=== PATIENT | female | born 1995 | race Hispanic/Latino ===

== ENCOUNTER 2019-12-28 06:17 | Emergency (ER) | payer MEDICAID, SELFPAY ==
[2019-12-28 06:54] LABS: #Basophils 0.1 thou/uL (0.0-0.2); #Eosinphils 0.1 thou/uL (0.0-0.7); #Lymphocytes 1.7 thou/uL (1.20-3.40); #Monocytes 0.6 thou/uL (0.11-0.59); #Neutrophils 5.6 thou/uL (1.40-6.50); %Basophils 1.4 % (0.0-1.0); %Eosinophils 1.1 % (0.0-10.0); %Lymphocytes 20.7 % (21.0-51.0); %Monocytes 7.1 % (0.0-10.0); %Neutrophils 69.6 % (42.0-75.0); Hemoglobin 12.8 g/dL (12.0-16.0); Mean Corpuscular Hemoglobin 31.6 pg (27.0-31.0); Mean Corpuscular Volume 95.9 fL (78.0-98.0); Mean Platelet Volume 8.6 fL (7.4-10.4); Platelet Count 202 thou/uL (130-400); RBC Distribution Width 10.7 % (11.5-14.5); Red Blood Cell (RBC) Count 4.06 mill/uL (4.20-5.40)
--- NOTE | 2019-12-28 08:31 | ULT ---
PELVIC ULTRASOUND INCLUDING TRANSABDOMINAL AND TRANSVAGINAL AND VASCULAR DUPLEX WITH COLOR AND SPECTR AL DOPPLER IMAGING: HISTORY: patient with bleeding and spotting. FINDINGS: There is an early viable intrauterine fetus. Arthur-rump length 1.5 cm. gestational age 7 week s 6 days. Gestational sac size 2.4 cm=7 weeks 3 days. heart rate 162 b.p.m. There is some minimal subchorionic hemorrhage. Right ovary is not seen. The left ovary is within no rmal limits containing a 1.1 x 1.6 x 1.2 cm small functional cyst. Trace cul-de-sac fluid. IMPRESSION: Small subchorionic hemorrhage. Early viable intrauterine fetus at 7 weeks 5 days with an Estimated d ate of confinement of 08/10/2020. Small functional left ovarian cyst. Nonvisualized right ovary. POS: TPC
[2019-12-28 08:48] LABS: Bilirubin Negative (Negative); Blood, Urine 2+ (Negative); Clarity Clear (Clear); Glucose, Urine (Dipstick) Normal (Negative); Leukocyte Negative Leu/uL (Negative); Nitrite Negative (Negative); Protein, Urine (Dipstick) Negative (Neg-Trace); RBC/HPF 0-3 HPF (0-3); Squamous Epithelial 0-3 HPF (0-3); Urobilinogen Normal mg/dL (Less than 2); WBC/HPF 0-3 HPF (0-3)
[2019-12-28 08:52] LABS: Bacteria/HPF 1+ HPF (None Seen)
== END 2019-12-28 08:58 | disposition home or self-care (01) ==
LOC: ERS 06:17
DX: O46.91 Antepartum hemorrhage, unspecified, first trimester (principal); Z3A.01 Less than 8 weeks gestation of pregnancy
CPT/HCPCS: 36415; 76856; 81003; 81015; 84702; 85025; 86900; 86901

== ENCOUNTER 2020-08-11 09:12 | Outpatient (CLI) | payer MEDICAID, OTHER ==
[2020-08-11 17:59] LABS: SARS-CoV-2 MS2 Positive; SARS-CoV-2 N Gene Negative; SARS-CoV-2 S Gene Negative; SARS-CoV-2 by NAA Not Detected (NotDetected); SARS-CoV-2 orf1ab Negative
== END 2020-08-11 09:13 | disposition home or self-care (01) ==
LOC: LABSCS 09:12
PROVIDERS: ATTEND Family Medicine
DX: Z20.828 Contact with and (suspected) exposure to other viral communicable diseases (principal)
CPT/HCPCS: 87635; U0003

== ENCOUNTER 2020-08-14 18:00 | Inpatient (IN) | payer MEDICAID, OTHER ==
[~2020-08-14 18:00] MED LIST: Bupivacaine/Epinephrine 0.25% 30 ML VIAL ONE
[2020-08-14 22:22] VITALS: BMI 25.8
[2020-08-14] MEDS ORDERED: Butorphanol Tartrate 1 MG/ML VIAL SLOW IVP PRN (22:33)
[2020-08-14] MEDS ORDERED: hydrALAZINE 20 MG/ML VIAL SLOW IVP PRN (22:33)
[2020-08-14] MEDS ORDERED: Misoprostol 200 MCG TAB PR PRN (22:33)
[2020-08-14] MEDS ORDERED: Carboprost 250 MCG/ML AMP IM PRN (22:33)
[2020-08-14] MEDS ORDERED: Lidocaine 1% (PF) 30 ML VIAL SC PRN (22:33)
[2020-08-14] MEDS ORDERED: Ibuprofen 800 MG TAB PO PRN (22:33)
[2020-08-14] MEDS ORDERED: Methylergonovine 0.2 MG/ML VIAL IM PRN (22:33)
[2020-08-14] MEDS ORDERED: Ondansetron PF 4 MG/2 ML Vial IVP PRN (22:33)
[2020-08-14] MEDS ORDERED: Promethazine HCl 25 MG/ML VIAL IM PRN (22:33)
[2020-08-14] MEDS ORDERED: NS / Oxytocin 40 units/1000ml 1,000 ML IV PRN (22:33)
[2020-08-14] MEDS ORDERED: Diphenoxylate HCl/Atropine Tablet PO PRN ×2 (22:33)
[2020-08-14] MEDS: Lactated Ringer's 1,000 ML IV SCH (22:48)
[2020-08-14 23:08] LABS: Mean Corpuscular HGB CONC 34.8 g/dL (32.0-36.0); Mean Corpuscular Hemoglobin 34.1 pg (27.0-31.0); Mean Corpuscular Volume 98.1 fL (78.0-98.0); Mean Platelet Volume 9.3 fL (7.4-10.4); Platelet Count 173 thou/uL (130-400); RBC Distribution Width 10.9 % (11.5-14.5); Red Blood Cell (RBC) Count 3.81 mill/uL (4.20-5.40); White Blood Cell (WBC) Count 9.9 thou/uL (4.8-10.8)
--- NOTE | 2020-08-14 23:42 | PDOC.FPROB ---
FMR OB H&P: HPI - History of Present Illness Chief Complaint: post dates IOL Indentification: 24 yo at 40.4 History of Present Illness: Patient presents today for IOL. She denies feeling contractions, LOF, vaginal bleeding, headache, blurry vision, chest pain, SOB. She has A1GDM and checks her blood sugar regularly at home. She reports that her blood sugar was 100 before coming to the hospital today. 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, Pap NILM 07/2019, menarche at 14 - Surgical History Sx History: None - Social History Social History: Denies tob/alcohol/drug use - Family History Family History: Denies family history FMR OB H&P: Medications - Current Home Medications: Medication Instructions Recorded Confirmed Type No Known 08/14/20 08/14/20 History Allergies/Adverse Reactions: Allergies Allergy/AdvReac Type Severity Reaction Status Date / Time No Known Allergies Allergy Verified 08/14/20 22:00 FMR OB H&P: ROS - Review of Systems General: denies: fever/chills ENT: denies: nasal congestion, rhinorrhea Cardiovascular: denies: chest pain, edema Respiratory: denies: cough, congestion, shortness of breath Gastrointestinal: denies: abdominal pain Genitourinary (Female): denies: vaginal bleeding, contractions Neurologic: denies: numbness Integumentary: denies: itching, rash Psychological: denies: depression, anxiety FMR OB H&P: Vital Signs - Maternal Vital signs: Vital Signs - First Documented Temp Pulse Resp BP 99.2 F 67 18 127/72 08/14/20 21:58 08/14/20 21:58 08/14/20 21:58 08/14/20 21:58 - Heart Tones Baseline: 150 Variability: moderate Acceleration: present Deceleration: absent Category: category 1 [place] contractions every: 4-5 min FMR OB H&P: Physical Exam - Physical Exam General: NAD, awake, alert and oriented HEENT: normocephalic and atraumatic, grossly normal vision, grossly normal hearing Neck: supple, FROM Heart: RRR, normal S1/S2 General: CTAB, no respiratory distress Abdomen: gravid, non-tender Musculoskeletal: FROM in all four extremities Neurological: cranial nerves II through XII intact, sensation to pain,touch and proprioception grossly normal Skin: no rash, no jaundice Lymphatic: no unusual bruising or bleeding, no purpura, no petechia Psychiatric: intact recent and remote memory, good judgement and insight, normal mood and affect - Pelvic Exam Vulva: normal hair distribution, appropriate hedy stage SVE: Adam score: 7 Membranes: Intact FMR OB H&P: Results - Labs Lab results: Laboratory Results - last 24 hr 08/14/20 08/14/20 22:54 22:54 WBC 9.9 RBC 3.81 L Hgb 13.0 Hct 37.4 MCV 98.1 H MCH 34.1 H MCHC 34.8 RDW 10.9 L Plt Count 173 MPV 9.3 Blood Type O POSITIVE Antibody Screen NEGATIVE FMR OB H&P: A/P Discussion: Date/Time: 08/14/20 2337 24 yo at 40.4 wga by 7.5 wk morales presents for post-dates IOL IOL - SVE: @ 2326 - Cytotek placed ~2350 - Adam of 7, will likely start pit on next check - FHT: baseline 150, moderate variability, accels, no decels - [place]: contraction q 4-5 min - Epidural desired at later time A1GDM - reports home reading of 100 before coming to the hospital - goal 70-110 - Q4Hr accuchecks PCP: Jose G JOSE This H&P was discussed with Dr. Barboza and Dr. Talamantes who agree with the above documentation and plan. Addendum - Attending - Attending Attestation Date/Time: 08/15/20 6845 I personally evaluated the patient and discussed the management with Dr. Houston. I agree with the History, Examination, Assessment and Plan documented above with any addition or exceptions noted below. IOL for post dates. GBS neg. Adam score 7 so will give single dose of cytotec. FHT reassuring. Expectant management otherwise.
[2020-08-14] MEDS ORDERED: Misoprostol 100 MCG TAB VAG SCH (23:45)
[2020-08-14 23:49] LABS: HBSAg Index 0.17 S/CO (0-0.99); Hep B Surf Ag Non-Reactive S/CO (NonReactive); Syphilis Antibody Nonreactive (Nonreactive); Syphilis Antibody Index 0.02 S/CO (<1.00 Non-Reactive)
--- NOTE | 2020-08-15 04:14 | PDOC.OBLPN ---
FMR OB Labor PN: Subj - Interval History Chief Complaint: IOL Indentification: 24 yo at 40.5 wga Interval History: Doing well, starting to feel her contractions, pain 11/30 FMR OB Labor PN: Obj - Maternal Vital signs: BP: 115/68 HR: 60 Tmax: 98.7 FMR OB Labor PN: Exam - Physical Exam General: NAD HEENT: grossly normal vision, grossly normal hearing General: no respiratory distress Abdomen: gravid Neurological: cranial nerves II through XII intact, sensation to pain,touch and proprioception grossly normal - Pelvic Exam Vulva: normal hair distribution, appropriate hedy stage SVE: Adam score: 8 Membranes: intact FMR OB Labor PN: Data - Labs Lab results: Laboratory Results - last 24 hr 08/14/20 08/14/20 08/14/20 22:54 22:54 22:54 WBC RBC Hgb Hct MCV MCH MCHC RDW Plt Count MPV POC Glucose Syphilis IgG/IgM Ab Nonreactive Hep Bs Antigen Non-Reactive Blood Type O POSITIVE Antibody Screen NEGATIVE 08/14/20 08/15/20 08/15/20 22:54 00:21 03:56 WBC 9.9 RBC 3.81 L Hgb 13.0 Hct 37.4 MCV 98.1 H MCH 34.1 H MCHC 34.8 RDW 10.9 L Plt Count 173 MPV 9.3 POC Glucose 80 79 Syphilis IgG/IgM Ab Hep Bs Antigen Blood Type Antibody Screen FMR OB Labor PN: A/P - Problem List (1) Intrauterine Current Visit: Yes Status: Acute Code(s): Z34.90 - ENCNTR FOR SUPRVSN OF NORMAL , UNSP, UNSP TRIMESTER (2) Gestational diabetes Current Visit: Yes Status: Acute Code(s): O24.419 - GESTATIONAL DIABETES MELLITUS IN , UNSP CONTROL Discussion: 24 yo at 40.4 wga by 7.5 wk morales presents for post-dates IOL IOL - SVE: @ 0400 - Cytotek placed ~2350 - Adam of 8, Pit is ordered, not yet started due to frequent contractions - FHT: baseline 140, moderate variability, accels, no decels - [place]: contraction q 1-2 min - Epidural desired at later time A1GDM - Glucose: 80, 79 - goal 70-110 - Q4Hr ilia PCP: Jose G JOSE
[2020-08-15] MEDS ORDERED: NS w/ Oxytocin 10 units 500 ML IV SCH (04:15)
[2020-08-15] MEDS: Lactated Ringer's 1,000 ML IV SCH ×3 (06:36→15:16)
[2020-08-15] MEDS ORDERED: Fentanyl 4 mcg/Bup 0.1% Cadd 100 ML ONE ×3 (06:57→22:22)
[2020-08-15] MEDS: Fentanyl 4 mcg/Bupivacaine 0.1% Cassette 100 ML EPIDURAL SCH ×3 (07:43→22:26)
[2020-08-15] MEDS ORDERED: Lactated Ringer's 500 ML IV PRN (07:46)
[2020-08-15] MEDS ORDERED: Ondansetron PF 4 MG/2 ML Vial IVP PRN (07:46)
[2020-08-15] MEDS ORDERED: Promethazine HCl 25 MG/ML VIAL IM PRN (07:46)
[2020-08-15] MEDS ORDERED: Naloxone HCl 0.4 mg/ml Vial IVP PRN ×2 (07:46)
[2020-08-15] MEDS ORDERED: Acetaminophen 325 MG TAB PO PRN (07:46)
[2020-08-15] MEDS ORDERED: diphenhydrAMINE 50 MG/ML VIAL IVP PRN (07:46)
[2020-08-15] MEDS ORDERED: Communication Order-Pharmacy FS SCH (08:00)
--- NOTE | 2020-08-15 08:15 | PDOC.LDPN ---
Labor & Delivery Progress Note - Subjective Subjective: comfortable - Objective Vital signs reviewed and normal: yes General: NAD Uterine fundus: non tender SVE: /-1 FHT: category 1, variability present [place] contractions every: 1-2 mins Plan: continue plan of care -: 24 yo at 40.5 wga by 7.5 wk [place] presents for post-dates IOL IOL - SVE: /0 @ 0400, /-1 @ 0800 - Cytotek placed ~2350, not repeated 2/2 frequent ctx - Adam of 8, Pit is ordered, not yet started due to frequent contractions - FHT: baseline 135, moderate variability, accels, no decels - [place]: contraction q 1-2 min - Epidural completed @ 0730 A1GDM - Glucose: 80, 79 - goal 70-110 - Q4Hr accuchecks PCP: Jose G JOSE Addendum - Attending - Attending Attestation Date/Time: 08/15/20 0822 I personally evaluated the patient and discussed the management with Dr. Crockett I agree with the History, Examination, Assessment and Plan documented above with any addition or exceptions noted below. Doing well. Minimal change. Pit augmentation. Epidural in place. Monitoring BP due to side effects after placement with hypotension. Ephedrine given. Ana
[2020-08-15] MEDS: EPHEDRINE 25 MG/5 ML SYRINGE SLOW IVP PRN ×2 (08:28→08:35)
--- NOTE | 2020-08-15 10:36 | PDOC.LDPN ---
Labor & Delivery Progress Note - Subjective Subjective: comfortable - Objective Vital signs reviewed and normal: yes General: NAD Uterine fundus: non tender SVE: /-1 FHT: category 1 [place] contractions every: 2 mins-mild contractions on exam Plan: continue plan of care, pitocin for augmentation -: 24 yo at 40.5 wga by 7.5 wk sono presents for post-dates IOL IOL - SVE: /0 @ 0400, /-1 @ 0800, -1 @ 1000 - Cytotec placed ~2350, not repeated 2/2 frequent ctx - Adam of 10, start pit at this time - FHT: baseline 135, moderate variability, accels, no decels - [place]: contraction q 1-2 min - Epidural completed @ 0730 A1GDM - Glucose: 80, 79, 83 - goal 70-110 - Q4Hr accuchecks PCP: Jose G JOSE Addendum - Attending - Attending Attestation Date/Time: 08/15/20 1121 I personally evaluated the patient and discussed the management with Dr. Crockett I agree with the History, Examination, Assessment and Plan documented above with any addition or exceptions noted below. Continue current plan. Start pit augmentation. Contractions palpate mild. Ana
[2020-08-15] MEDS: NS w/ Oxytocin 10 units 500 ML IV SCH ×2 (11:52→12:27)
--- NOTE | 2020-08-15 12:13 | PDOC.LDPN ---
Labor & Delivery Progress Note - Subjective Subjective: comfortable - Objective Vital signs reviewed and normal: yes Abnormal vital signs: Mild intermittent HoTN, DBP to 59 X1 General: NAD, resting Uterine fundus: non tender SVE: 0 FHT: category 1 (~30 min episode Minimal variability returning to moderate after SVE, no decels) [place] contractions every: irregular Plan: continue plan of care, pitocin for augmentation -: 24 yo at 40.5 wga by 7.5 wk sono presents for post-dates IOL IOL - SVE: /0 @ 0400, /-1 @ 0800, /-1 @ 1000, /-1 @1200 - Cytotec placed ~2350, not repeated 2/2 frequent ctx - Adam of 10, start pit at this time pending BP and FHT - FHT: baseline 120, moderate variability, accels, no decels - [place]: contraction irregular - Epidural completed @ 0730 A1GDM - Glucose: 80, 79, 83 - goal 70-110 - Q4Hr accuchecks PCP: Jose G JOSE Addendum - Attending - Attending Attestation Date/Time: 08/15/20 1320 I personally evaluated the patient and discussed the management with Dr. Crockett I agree with the History, Examination, Assessment and Plan documented above with any addition or exceptions noted below. Continues to make progress. Still in latent. Discussed possible AROM with next check. Patient ok if needed to progress labor. Pit per protocol. Ana
--- NOTE | 2020-08-15 14:06 | PDOC.LDPN ---
Labor & Delivery Progress Note - Subjective Subjective: comfortable - Objective Vital signs reviewed and normal: yes General: NAD, resting, breathing through contractions Uterine fundus: non tender SVE: /0 FHT: category 1 [place] contractions every: 2-3 minutes AROM: clear fluid Resuscitative measures: maternal IV fluids Plan: continue plan of care -: 24 yo at 40.5 wga by 7.5 wk sono presents for post-dates IOL IOL - SVE: /0 @ 0400, /-1 @ 0800, /-1 @ 1000, /-1 @1200, /0 @ 1400 - Cytotec placed ~2350 on 08/14, not repeated 2/2 frequent ctx - Epidural placed @ 0730 - Started pitocin at 1200, currently pit @ 2 - FHT: baseline 125, moderate variability, accels, no decels - [place]: CTX 2-3 min - AROM @ 1420 - Will recheck in 2 hrs, continue to monitor A1GDM - Glucose: 80, 79, 83 - goal 70-110 - Q4Hr accuchecks PCP: Jose G JOSE Discussed with Dr. Dorado Addendum - Attending - Attending Attestation Date/Time: 08/15/20 8189 I personally evaluated the patient and discussed the management with Dr. Johnson I agree with the History, Examination, Assessment and Plan documented above with any addition or exceptions noted below. AROM with clear fluid. Cat 2 afterwards but improving. Rapid decent. Possible shoulder cord. Monitor. Ana
--- NOTE | 2020-08-15 16:06 | PDOC.LDPN ---
Labor & Delivery Progress Note - Subjective Subjective: comfortable - Objective Vital signs reviewed and normal: yes General: NAD, resting, breathing through contractions Uterine fundus: non tender SVE: /0 FHT: category 1 [place] contractions every: 2-3 minutes AROM: clear fluid Resuscitative measures: maternal IV fluids Plan: continue plan of care -: 24 yo at 40.5 wga by 7.5 wk sono presents for post-dates IOL IOL - SVE: /0 @ 0400, /-1 @ 0800, /-1 @ 1000, /-1 @1200, 100/0 @ 1400, 100/0 @ 1600 - Cytotec placed ~2350 on 08/14, not repeated 2/2 frequent ctx - Epidural placed @ 0730 - Started pitocin at 1200, currently pit @ 4 - AROM @ 1420, cl fluid - FHT: baseline 120, moderate variability, accels, no decels; Patient initially had early decels after AROM but these resolved. - [place]: CTX 2-3 min - Will recheck in 2 hrs, continue to monitor A1GDM - Glucose: 80, 79, 83, 61 - goal 70-110 - Q4Hr accuchecks PCP: Jose G JOSE Discussed with Dr. Dorado [place] - Attending - Attending Attestation Date/Time: 08/15/201816 I personally evaluated the patient and discussed the management with Dr. Araiza I agree with the History, Examination, Assessment and Plan documented above with any addition or exceptions noted below. Stable. Continue to monitor closely. Slow progress but remains active and on labor curve. Pit per protocol. Internal monitoring as needed. Ana
[2020-08-15] MEDS: Dextrose 5%-Lactated Ringers 1,000 ML IV SCH (16:50)
--- NOTE | 2020-08-15 18:27 | PDOC.OBLPN ---
FMR OB Labor PN: Subj - Interval History Chief Complaint: IOL Indentification: 24 you at 40.5 wga Interval History: Doing well; Denies headache, chest pain, abdominal pain. Resting FMR OB Labor PN: Obj - Maternal Vital signs: BP: 130/82 P: 67 R: 16 Temp: 98.5 FMR OB Labor PN: Exam - Physical Exam General: NAD, awake, alert and oriented HEENT: grossly normal vision, grossly normal hearing General: no respiratory distress Abdomen: gravid - Pelvic Exam Vulva: normal hair distribution SVE: 100/0 Membranes: AROM FMR OB Labor PN: Data - Labs Lab results: Laboratory Results - last 24 hr 08/14/20 08/14/20 08/14/20 22:54 22:54 22:54 WBC RBC Hgb Hct MCV MCH MCHC RDW Plt Count MPV POC Glucose Syphilis IgG/IgM Ab Nonreactive Hep Bs Antigen Non-Reactive Blood Type O POSITIVE Antibody Screen NEGATIVE 08/14/20 08/15/20 08/15/20 22:54 00:21 03:56 WBC 9.9 RBC 3.81 L Hgb 13.0 Hct 37.4 MCV 98.1 H MCH 34.1 H MCHC 34.8 RDW 10.9 L Plt Count 173 MPV 9.3 POC Glucose 80 79 Syphilis IgG/IgM Ab Hep Bs Antigen Blood Type Antibody Screen 08/15/20 08/15/20 08/15/20 08:36 12:35 16:24 WBC RBC Hgb Hct MCV MCH MCHC RDW Plt Count MPV POC Glucose 83 61 L 66 L Syphilis IgG/IgM Ab Hep Bs Antigen Blood Type Antibody Screen FMR OB Labor PN: A/P - Problem List (1) Intrauterine Current Visit: Yes Status: Acute Code(s): Z34.90 - ENCNTR FOR SUPRVSN OF NORMAL , UNSP, UNSP TRIMESTER (2) Gestational diabetes Current Visit: Yes Status: Acute Code(s): O24.419 - GESTATIONAL DIABETES MELLITUS IN , UNSP CONTROL Discussion: 24 yo at 40.5 wga by 7.5 wk sono presents for post-dates IOL IOL - SVE: /0 @ 0400, /-1 @ 0800, /-1 @ 1000, /-1 @1200, 5/100/0 @ 1400, 100/0 @ 1600, 100/0 @ 1800 - Cytotec placed ~2350 on 08/14, not repeated 2/2 frequent ctx - Epidural placed @ 0730 - Started pitocin at 1200, currently turned off due to frequent contractions and marked variability - AROM @ 1420, cl fluid - FHT: baseline 130, moderate variability, accels, no decels; episode of marked variability that has now resolved - [place]: CTX 1-3 min - Will recheck in 2 hrs, continue to monitor A1GDM - Glucose: 80, 79, 83, 61, 66; started on D5 LR @ 125 mls/hr - goal 70-110 - Q4Hr accuchecks PCP: Jose G JOSE Addendum - Attending - Attending Attestation Date/Time: 08/15/201914 I personally evaluated the patient and discussed the management with resident team I agree with the History, Examination, Assessment and Plan documented above with any addition or exceptions noted below. Continue close monitoring. Progressing. Place internal monitoring as needed. Ana
--- NOTE | 2020-08-15 20:29 | PDOC.OBLPN ---
FMR OB Labor PN: Subj - Interval History Chief Complaint: IOl Indentification: 24 yo at 40.5 wga Interval History: pain improved with bolus, nauseous FMR OB Labor PN: Obj - Maternal Vital signs: BP: 111/88 HR: 62 FMR OB Labor PN: Exam - Physical Exam HEENT: normocephalic and atraumatic, grossly normal vision, grossly normal hear ing Neck: supple, FROM General: no respiratory distress - Pelvic Exam Vulva: normal hair distribution SVE: Membranes: AROM FMR OB Labor PN: Data - Labs Lab results: Laboratory Results - last 24 hr 08/14/20 08/14/20 08/14/20 22:54 22:54 22:54 WBC RBC Hgb Hct MCV MCH MCHC RDW Plt Count MPV POC Glucose Syphilis IgG/IgM Ab Nonreactive Hep Bs Antigen Non-Reactive Blood Type O POSITIVE Antibody Screen NEGATIVE 08/14/20 08/15/20 08/15/20 22:54 00:21 03:56 WBC 9.9 RBC 3.81 L Hgb 13.0 Hct 37.4 MCV 98.1 H MCH 34.1 H MCHC 34.8 RDW 10.9 L Plt Count 173 MPV 9.3 POC Glucose 80 79 Syphilis IgG/IgM Ab Hep Bs Antigen Blood Type Antibody Screen 08/15/20 08/15/20 08/15/20 08:36 12:35 16:24 WBC RBC Hgb Hct MCV MCH MCHC RDW Plt Count MPV POC Glucose 83 61 L 66 L Syphilis IgG/IgM Ab Hep Bs Antigen Blood Type Antibody Screen 08/15/20 18:42 WBC RBC Hgb Hct MCV MCH MCHC RDW Plt Count MPV POC Glucose 96 Syphilis IgG/IgM Ab Hep Bs Antigen Blood Type Antibody Screen FMR OB Labor PN: A/P - Problem List (1) Intrauterine Current Visit: Yes Status: Acute Code(s): Z34.90 - ENCNTR FOR SUPRVSN OF NORMAL , UNSP, UNSP TRIMESTER (2) Gestational diabetes Current Visit: Yes Status: Acute Code(s): O24.419 - GESTATIONAL DIABETES MELLITUS IN , UNSP CONTROL Discussion: 24 yo at 40.5 wga by 7.5 wk sono presents for post-dates IOL IOL - SVE: /0 @ 0400, 2/80/-1 @ 0800, 80/-1 @ 1000, 90/-1 @1200, 100/0 @ 1400, 100/0 @ 1600, 100/0 @ 1800, /0 @ 2000 - Cytotec placed ~2350 on 08/14, not repeated 2/2 frequent ctx - Epidural placed @ 0730 - Started pitocin at 1200, Pit at 2 - AROM @ 1420, cl fluid - FHT: baseline 120, category II, periods of minimal variability, late decel, no accels, will attempt position change - [place]: CTX 1-3 min - Will recheck in 2 hrs, continue to monitor Elevated blood pressure reading - BP of 140/63 - Pre E labs ordered A1GDM - Glucose: 80, 79, 83, 61, 66; started on D5 LR @ 125 mls/hr - goal 70-110 - Q4Hr accuchecks PCP: Jose G JOSE Addendum - Attending - Attending Attestation Date/Time: 08/15/202013 I personally evaluated the patient and discussed the management with Dr. Houston I agree with the History, Examination, Assessment and Plan documented above with any addition or exceptions noted below. Mild range BP. Labs pending. Asymptomatic. At this time gHTN. Monitor closely. Continues to make progress. Pit as needed. FHT cat 2 to cat [address] Patient comfortable. Ana
[2020-08-15 21:22] LABS: #Lymphocytes 0.7 thou/uL (1.20-3.40); #Monocytes 0.9 thou/uL (0.11-0.59); #Neutrophils 12.9 thou/uL (1.40-6.50); %Basophils 0.1 % (0.0-1.0); %Eosinophils 0.1 % (0.0-10.0); %Lymphocytes 4.9 % (21.0-51.0); %Monocytes 6.3 % (0.0-10.0); %Neutrophils 88.5 % (42.0-75.0); Hemoglobin 13.9 g/dL (12.0-16.0); Mean Corpuscular HGB CONC 34.9 g/dL (32.0-36.0); Mean Corpuscular Hemoglobin 34.3 pg (27.0-31.0); Mean Corpuscular Volume 98.1 fL (78.0-98.0); Mean Platelet Volume 8.7 fL (7.4-10.4); Platelet Count 148 thou/uL (130-400); RBC Distribution Width 10.9 % (11.5-14.5); Red Blood Cell (RBC) Count 4.04 mill/uL (4.20-5.40); White Blood Cell (WBC) Count 14.6 thou/uL (4.8-10.8)
[2020-08-15 21:40] LABS: ALT (SGPT) 15 U/L (8-55); AST (SGOT) 17 U/L (5-34); Albumin 3.3 g/dL (3.5-5.0); Alkaline Phosphatase 205 U/L (40-110); Anion Gap 13 mmol/L (10-20); BUN (Urea Nitrogen) 7 mg/dL (7.0-18.7); Bilirubin, Total 0.5 mg/dL (0.2-1.2); Calc. Creatinine Clearance 128 mL/min (70-130); Calcium 8.5 mg/dL (7.8-10.44); Carbon Dioxide 23 mmol/L (22-29); Chloride 106 mmol/L (98-107); Estimated GFR-MDRD Greater than 90; Globulin 2.8 g/dL (2.4-3.5); Glucose 119 mg/dL (70-105); Protein, Total 6.1 g/dL (6.0-8.3); Sodium 138 mmol/L (136-145)
[2020-08-15 22:17] LABS: Creatinine, Urine 67.83 mg/dL (47-110)
--- NOTE | 2020-08-15 22:31 | PDOC.OBLPN ---
FMR OB Labor PN: Subj - Interval History Chief Complaint: IOL Indentification: 24 yo at 40.5 wga Interval History: Starting to feel pressure; denies WOLF, chest pain, SOB FMR OB Labor PN: Obj - Maternal Vital signs: BP: 140/82 HR: 72 FMR OB Labor PN: Exam - Physical Exam General: NAD HEENT: normocephalic and atraumatic, grossly normal vision, grossly normal hearing Neck: supple, FROM General: no respiratory distress Neurological: sensation to pain,touch and proprioception grossly normal Skin: no rash, no jaundice Psychiatric: intact recent and remote memory, good judgement and insight, normal mood and affect - Pelvic Exam Vulva: normal hair distribution SVE: 9.5/100/+1 Membranes: AROM FMR OB Labor PN: Data - Labs Lab results: Laboratory Results - last 24 hr 08/14/20 08/14/20 08/14/20 22:54 22:54 22:54 WBC RBC Hgb Hct MCV MCH MCHC RDW Plt Count MPV Neutrophils % Lymphocytes % Monocytes % Eosinophils % Basophils % Neutrophils # Lymphocytes # Monocytes # Eosinophils # Basophils # Sodium Potassium Chloride Carbon Dioxide Anion Gap BUN Creatinine Estimated GFR (MDRD) Glucose POC Glucose Calcium Total Bilirubin AST ALT Alkaline Phosphatase Serum Total Protein Albumin Globulin Albumin/Globulin Ratio U Random Total Protein Urine Creatinine Syphilis IgG/IgM Ab Nonreactive Hep Bs Antigen Non-Reactive Blood Type O POSITIVE Antibody Screen NEGATIVE 08/14/20 08/15/20 08/15/20 22:54 00:21 03:56 WBC 9.9 RBC 3.81 L Hgb 13.0 Hct 37.4 MCV 98.1 H MCH 34.1 H MCHC 34.8 RDW 10.9 L Plt Count 173 MPV 9.3 Neutrophils % Lymphocytes % Monocytes % Eosinophils % Basophils % Neutrophils # Lymphocytes # Monocytes # Eosinophils # Basophils # Sodium Potassium Chloride Carbon Dioxide Anion Gap BUN Creatinine Estimated GFR (MDRD) Glucose POC Glucose 80 79 Calcium Total Bilirubin AST ALT Alkaline Phosphatase Serum Total Protein Albumin Globulin Albumin/Globulin Ratio U Random Total Protein Urine Creatinine Syphilis IgG/IgM Ab Hep Bs Antigen Blood Type Antibody Screen 08/15/20 08/15/20 08/15/20 08:36 12:35 16:24 WBC RBC Hgb Hct MCV MCH MCHC RDW Plt Count MPV Neutrophils % Lymphocytes % Monocytes % Eosinophils % Basophils % Neutrophils # Lymphocytes # Monocytes # Eosinophils # Basophils # Sodium Potassium Chloride Carbon Dioxide Anion Gap BUN Creatinine Estimated GFR (MDRD) Glucose POC Glucose 83 61 L 66 L Calcium Total Bilirubin AST ALT Alkaline Phosphatase Serum Total Protein Albumin Globulin Albumin/Globulin Ratio U Random Total Protein Urine Creatinine Syphilis IgG/IgM Ab Hep Bs Antigen Blood Type Antibody Screen 08/15/20 08/15/20 08/15/20 18:42 20:33 21:15 WBC RBC Hgb Hct MCV MCH MCHC RDW Plt Count MPV Neutrophils % Lymphocytes % Monocytes % Eosinophils % Basophils % Neutrophils # Lymphocytes # Monocytes # Eosinophils # Basophils # Sodium 138 Potassium 4.0 Chloride 106 Carbon Dioxide 23 Anion Gap 13 BUN 7 Creatinine 0.70 Estimated GFR (MDRD) Greater than 90 Glucose 119 H POC Glucose 96 Calcium 8.5 Total Bilirubin 0.5 AST 17 ALT 15 Alkaline Phosphatase 205 H Serum Total Protein 6.1 Albumin 3.3 L Globulin 2.8 Albumin/Globulin Ratio 1.2 U Random Total Protein 116 H Urine Creatinine 67.83 Syphilis IgG/IgM Ab Hep Bs Antigen Blood Type Antibody Screen 08/15/20 21:15 WBC 14.6 H RBC 4.04 L Hgb 13.9 Hct 39.7 MCV 98.1 H MCH 34.3 H MCHC 34.9 RDW 10.9 L Plt Count 148 MPV 8.7 Neutrophils % 88.5 H Lymphocytes % 4.9 L Monocytes % 6.3 Eosinophils % 0.1 Basophils % 0.1 Neutrophils # 12.9 H Lymphocytes # 0.7 L Monocytes # 0.9 H Eosinophils # 0.0 Basophils # 0.0 Sodium Potassium Chloride Carbon Dioxide Anion Gap BUN Creatinine Estimated GFR (MDRD) Glucose POC Glucose Calcium Total Bilirubin AST ALT Alkaline Phosphatase Serum Total Protein Albumin Globulin Albumin/Globulin Ratio U Random Total Protein Urine Creatinine Syphilis IgG/IgM Ab Hep Bs Antigen Blood Type Antibody Screen FMR OB Labor PN: A/P - Problem List (1) Intrauterine Current Visit: Yes Status: Acute Code(s): Z34.90 - ENCNTR FOR SUPRVSN OF NORMAL , UNSP, UNSP TRIMESTER (2) Gestational diabetes Current Visit: Yes Status: Acute Code(s): O24.419 - GESTATIONAL DIABETES MELLITUS IN , UNSP CONTROL Discussion: 24 yo at 40.5 wga by 7.5 wk sono presents for post-dates IOL IOL - SVE: 1/80/0 @ 0400, 2/80/-1 @ 0800, 80/-1 @ 1000, 590/-1 @1200, 100/0 @ 1400, 6100/0 @ 1600, 7100/0 @ 1800, 8/0 @ 2000, 9.5/100/+1 @ 2200 - Cytotec placed ~2350 on 08/14, not repeated 2/2 frequent ctx - Epidural placed @ 0730 - Started pitocin at 1200, Pit at 2 - AROM @ 1420, cl fluid - FHT: baseline 130, category II, periods of minimal variability, early decels - [place]: CTX 1-2 min Pre-E - Plt: 173 > 148 - AST/ALT: - Pr:Cr ration: 1.71 - 1 severe range BP of 163/93 with recheck of 140/82 - will monitor for 2nd severe and consider starting mag A1GDM - Glucose: 80, 79, 83, 61, 66, 96; started on D5 LR @ 125 mls/hr - goal 70-110 - Q4Hr accuchecks PCP: Jose G JOSE Addendum - Attending - Attending Attestation Date/Time: 08/15/20 5622 I personally evaluated the patient and discussed the management with Dr. Ольга black I agree with the History, Examination, Assessment and Plan documented above with any addition or exceptions noted below. Patient with preeclampsia without severe features. Continue to closely monitor. Likely false positive GDM due to higher false positive results from testing patient underwent. Patient without intervention and maintained normal glucose throughout . Prepare for . Ana
[2020-08-16] MEDS: NS / Oxytocin 40 units/1000ml 1,000 ML IV PRN ×2 (00:40→03:21)
[2020-08-16] MEDS: Dextrose 5%-Lactated Ringers 1,000 ML IV SCH ×3 (01:21→15:47)
--- NOTE | 2020-08-16 01:54 | PDOC.OPDEL ---
OB Operative/Delivery Note Delivery Dr/Surgeon: Celso/Jose G/Estrada Pre-Delivery Diagnosis: elective induction Procedure/Post Delivery Dx: spontaneous vaginal delivery Anesthesia: epidural - Additional Findings/Plan Placenta delivered: spontaneous Repaired Obstetrical Laceration: other (1st degree, periurethral, and left labia minora) Compilations/Other Findings: Delivering Physician: Herman Attending: Estrada Procedure: Spontaneous Vaginal Delivery Anesthesia: epidural QBL: 393 ml Pre-op Diagnosis: 1. Term intrauterine in labor 2. Hx of A1GDM Post-op Diagnosis: 1. Term intrauterine , delivered 2. same as above Indications: A 24y/o female G1 now P1 presents to L&D for elective induction due to post-dating. Delivery Note: This is 24yo F G1 now P1 @ 40.6wks who delivered a viable F at 0035. Following an uneventful antepartum course, a vigorous female was delivered over an intact perineum in the occipitoanterior position. Anterior Shoulder and then remainder of the body delivered. No nuchal cord. The head was held down and mouth and nares were bulb suctioned. Cord clamped and cut and cord blood collected. Placenta delivered intact in the [place] with a 3 vessel cord noted. Fundal massage was performed and the fundus was firm. The cervix and vagina were inspected Laceration noted and repaired with 2-0 and 3-0 Vicryl in the usual fashion with good approximation and hemostasis. went to nursery in good condition for routine care. Apgars were 7/9 at 1 & 5 minutes, respectively. Patient tolerated delivery well and went to for routine recovery/care. Attending Note: I was present and participated in the above documented procedure. Grossly normal female born in OA position. 3VC. 1 degree laceration with mild extension to bilateral labia and periurethral tear. Repaired without complications. Continue routine care. ABrayMD Post delivery plan: routine recovery
[2020-08-16] MEDS ORDERED: Bisacodyl 10 MG SUPP PR PRN (03:21)
[2020-08-16] MEDS ORDERED: NS / Oxytocin 40 units/1000ml 1,000 ML IV SCH (03:21)
[2020-08-16] MEDS ORDERED: Misoprostol 200 MCG TAB VAG PRN (03:21)
[2020-08-16] MEDS ORDERED: Lanolin Ointment 7 GM TUBE TOP PRN (03:21)
[2020-08-16] MEDS ORDERED: Benzocaine-Menthol 82.5 ML CAN TOP PRN (03:21)
[2020-08-16] MEDS ORDERED: Milk Of Magnesia 30 ML UDCUP PO PRN (03:21)
[2020-08-16] MEDS: Docusate Calcium (SURFAK) 240 MG CAP PO SCH ×2 (08:30→22:52)
[2020-08-16] MEDS: Prenatal Vitamin 1 TAB PO SCH (08:30)
[2020-08-16] MEDS: Ferrous Sulfate 325 MG TAB PO SCH ×2 (08:31→15:47)
[2020-08-16] MEDS ORDERED: Ibuprofen 800 MG TAB PO SCH (20:00)
[2020-08-16] MEDS: Ibuprofen 800 MG TAB PO SCH (22:52)
[2020-08-17] MEDS: Ibuprofen 800 MG TAB PO SCH (06:06)
--- NOTE | 2020-08-17 07:39 | PDOC.PP ---
Post Progress Note Post Day #: 1 Subjective: Doing well. No complaints. Pain well controlled w/ motrin. Would like to go home today. . PO intake tolerated: yes Flatus: yes Ambulation: yes Vital Signs (12 hours) Temp Pulse Resp BP 08/16/20 23:45 98.6 F 64 16 112/59 L Weight Weight 66.224 kg - Physical Examination General: NAD Cardiovascular: no m/r/g, RRR Respiratory: clear to auscultation bilaterally, non-labored breathing Abdominal: lochia (downtrending), no distention Neurological: no gross focal deficits Psychiatric: A&Ox3 Result Diagrams: 08/15/20 21:15 08/15/20 21:15 Additional Labs: Post Labs Hep Bs Antigen Non-Reactive S/CO (NonReactive) 08/14/20 22:54 Blood Type O POSITIVE 08/14/20 22:54 - Assessment/Plan 24 yo G1 now P1 delivered on 08/16/2020 PPD #1 s/p - doing well - needs Rx for breastpump at home - ambulating and tolerating diet. A1GDM - well controlled - 6 week 2hr GTT Pre-eclampsia - BPs well controlled since delivery - no severe range - proteinuria estimation 1.7 (protein/creatinine ratio) Dispo: likely d/c today pending 's Tbili lab. F/U at [facility] at 2 weeks.
[2020-08-17] MEDS: Prenatal Vitamin 1 TAB PO SCH (09:10)
[2020-08-17] MEDS: Docusate Calcium (SURFAK) 240 MG CAP PO SCH (09:10)
[2020-08-17] MEDS: Ferrous Sulfate 325 MG TAB PO SCH (09:11)
[2020-08-17 10:57] VITALS: BP 109/68; TEMP 98.3
== END 2020-08-17 11:45 | disposition home or self-care (01) | DRG 807 ==
LOC: L&D 21:35 → 3SW 08-16 04:11
PROVIDERS: ADMIT Family Medicine; ATTEND Family Medicine
PROC: 3E0P7VZ Introduction of Hormone into Female Reproductive, Via Natural or Artificial Opening (ICD-10-PCS; 2020-08-14)
PROC: 10907ZC Drainage of Amniotic Fluid, Therapeutic from Products of Conception, Via Natural or Artificial Opening (ICD-10-PCS; 2020-08-15)
PROC: 10E0XZZ Delivery of Products of Conception, External Approach (ICD-10-PCS; principal; 2020-08-16)
PROC: 0HQ9XZZ Repair Perineum Skin, External Approach (ICD-10-PCS; 2020-08-16)
DX: O48.0 Post-term pregnancy (principal); Z37.0 Single live birth; Z3A.40 40 weeks gestation of pregnancy; O24.429 Gestational diabetes mellitus in childbirth, unspecified control; O26.53 Maternal hypotension syndrome, third trimester; O76 Abnormality in fetal heart rate and rhythm complicating labor and delivery; O70.0 First degree perineal laceration during delivery; O71.82 Other specified trauma to perineum and vulva; O14.94 Unspecified pre-eclampsia, complicating childbirth
CPT/HCPCS: 36415; 36416; 51702; 80053; 82570; 84156; 85025; 85027; 86780; 86850; 86900; 86901; 87340; J2405; J2590

== ENCOUNTER 2021-04-10 14:04 | Emergency (ER) | payer MEDICAID, OTHER ==
[2021-04-10 15:12] LABS: #Basophils 0.1 thou/uL (0.0-0.2); #Eosinphils 0.2 thou/uL (0.0-0.7); #Lymphocytes 2.1 thou/uL (1.20-3.40); #Monocytes 0.6 thou/uL (0.11-0.59); #Neutrophils 5.6 thou/uL (1.40-6.50); %Basophils 0.6 % (0.0-1.0); %Eosinophils 1.8 % (0.0-10.0); %Lymphocytes 24.4 % (21.0-51.0); %Monocytes 6.8 % (0.0-10.0); %Neutrophils 66.3 % (42.0-75.0); Mean Corpuscular HGB CONC 33.9 g/dL (32.0-36.0); Mean Corpuscular Hemoglobin 32.6 pg (27.0-31.0); Mean Platelet Volume 8.6 fL (7.4-10.4); Platelet Count 231 thou/uL (130-400); Red Blood Cell (RBC) Count 4.61 mill/uL (4.20-5.40); White Blood Cell (WBC) Count 8.5 thou/uL (4.8-10.8)
[2021-04-10 15:14] LABS: BHCG - Serum Negative (NEGATIVE); Pregs Control Background? CLEAR/WHITE (CLR/WHITE); Pregs Control Bar Appear? YES (CONTROL BAR)
[2021-04-10 15:30] LABS: ALT (SGPT) 16 U/L (8-55); AST (SGOT) 19 U/L (5-34); Albumin 4.8 g/dL (3.5-5.0); Alkaline Phosphatase 94 U/L (40-110); Anion Gap 13 mmol/L (10-20); BUN (Urea Nitrogen) 11 mg/dL (7.0-18.7); Bilirubin, Total 0.5 mg/dL (0.2-1.2); Calc. Creatinine Clearance 0 mL/min (70-130); Calcium 9.9 mg/dL (7.8-10.44); Carbon Dioxide 26 mmol/L (22-29); Chloride 105 mmol/L (98-107); Globulin 3.3 g/dL (2.4-3.5); Glucose 94 mg/dL (70-105); Lipase 32 U/L (8-78); Potassium 4.6 mmol/L (3.5-5.1); Protein, Total 8.1 g/dL (6.0-8.3); Sodium 139 mmol/L (136-145)
[2021-04-10 15:52] LABS: Bacteria/HPF 4+ HPF (None Seen); Bilirubin Negative (Negative); Blood, Urine Negative (Negative); Clarity Turbid (Clear); Glucose, Urine (Dipstick) Normal (Negative); Ketone, Urine Negative (Negative); Leukocyte 500 Leu/uL (Negative); Nitrite Negative (Negative); Protein, Urine (Dipstick) Negative (Neg-Trace); Specific Gravity, Urine 1.007 (1.002-1.036); Urobilinogen Normal mg/dL (Less than 2); WBC/HPF Greater than 50 HPF (0-3)
[2021-04-10] MEDS ORDERED: cefTRIAXone\\ROCEPHIN 500 MG VIAL ONE (15:53)
[2021-04-10] MEDS ORDERED: Lidocaine 1% (PF) 30 ML VIAL ONE (15:53)
[2021-04-12 20:08] LABS: Chlamydia by PCR Not Detected (NotDetected); GC by PCR Not Detected (NotDetected)
== END 2021-04-10 16:16 | disposition home or self-care (01) ==
LOC: ERS 14:04
DX: N72 Inflammatory disease of cervix uteri (principal)
CPT/HCPCS: 36415; 80053; 81003; 81015; 83690; 84703; 85025; 87480; 87491; 87510; 87591; 87660; 96372; 99283; J0696; J2001